=== PATIENT | female | born 1960 | race Caucasian/White ===

== ENCOUNTER 2023-10-18 08:51 | Emergency (ER) | payer BC ==
[~2023-10-18] VITALS: Ht 172.7 cm; Wt 74.4 kg
[2023-10-18] MEDS ORDERED: LIPITOR20 MG PO (09:01)
[2023-10-18] MEDS ORDERED: JARDIANCE25 MG PO (09:01)
[2023-10-18] MEDS ORDERED: METFORMIN HCL500 M3 (09:02)
[2023-10-18 12:40] LABS: HEMATOCRIT 44.7 % (36.0-45.00); HEMOGLOBIN 15.1 g/dL (12.0-15.00); MEAN CELL VOLUME 88.8 fL (80.00-100.00); MEAN CORPUSCULAR HGB CONC 33.7 g/dl (32.0-36.0); PLATELET COUNT 233 K/uL (150-450); RED BLOOD COUNT 5.03 M/uL (4.00-6.00); RED CELL DISTRIBUTION WIDTH 13.6 % (11.5-14.5)
[2023-10-18 13:09] LABS: CALCIUM 9.6 mg/dL (8.5-10.1); CREATININE SERUM 0.76 mg/dL (0.55-1.02); GFR 76.86; POTASSIUM 3.12 mEq/L (3.5-5.1)
[2023-10-18 13:21] LABS: PH,URINE 5.5 (5.0-8.0); URINE APPEARANCE Cloudy; URINE BILIRRUBIN Negative (NEGATIVE); URINE BLOOD Large; URINE COLOR Yellow; URINE LEUKOCYTE Small; URINE NITRATE Negative; URINE PROTEIN 30 (NEGATIVE)
[2023-10-18 13:28] LABS: URINE BACTERIA 9794.8 uL (0.0-1933); URINE RBC 1325.7 uL (0.0-20.8); URINE WBC 1343.6 uL (0.0-23.2)
[2023-10-18 13:50] LABS: URINE GLUCOSE >=1000 MG/DL (NEGATIVE)
[2023-10-18] MEDS ORDERED: CIPRO500 MG PO (13:58)
== END 2023-10-18 14:37 | disposition home or self-care (01) ==
LOC: ER 08:52
PROVIDERS: General Practice
DX: N30.01 Acute cystitis with hematuria (principal); B96.20 Unspecified Escherichia coli [E. coli] as the cause of diseases classified elsewhere; Z88.8 Allergy status to other drugs, medicaments and biological substances